=== PATIENT | female | born 1985 | race Caucasian/White ===

== ENCOUNTER 2017-06-22 17:09 | Emergency (ER) | payer MEDICAID, SELFPAY ==
[2017-06-22] MEDS ORDERED: Ondansetron HCl/PF 4 MG/2 ML Vial ONE (17:59)
--- NOTE | 2017-06-22 21:53 | ULT ---
RIGHT UPPER QUADRANT ULTRASOUND: 06/22/17 HISTORY: Right upper quadrant abdominal pain as well as mild right lower quadrant abdominal pain with associa lilian nausea. FINDINGS: The gallbladder wall is at the upper limits of normal in thickness. No gallbladder calculus is seen and there is no pericholecystic fluid. The common duct measures 0.3 cm diameter which is within norm al limits. The liver, pancreas, visualized portions of the IVC, and right kidney demonstrate a normal sonograph ic appearance. The right kidney measures 12.5 cm in length. There has been no interval change compar ed to study on 04/19/14. IMPRESSION: No gallbladder calculi are visualized. POS: [facility]
== END 2017-06-22 19:40 | disposition home or self-care (01) ==
LOC: ERS 17:09
DX: R10.31 Right lower quadrant pain (principal); R10.11 Right upper quadrant pain; F31.9 Bipolar disorder, unspecified; F41.9 Anxiety disorder, unspecified; F17.210 Nicotine dependence, cigarettes, uncomplicated
CPT/HCPCS: 76705; 96361; 96374; 96375; J2270; J2405

== ENCOUNTER 2017-07-05 06:02 | Day surgery (SDC) | payer OTHER ==
[2017-07-04 12:43] VITALS: BMI 21.0
--- NOTE | 2017-07-05 01:49 | HP ---
DATE OF ADMISSION: 07/05/2017 HISTORY OF PRESENT ILLNESS: This is a 31-year-old female with abdominal pain, nausea, and vomiting. The pain was very severe and was over the right upper quadrant epigastric area. She cam e to the ER and had an abdominal CAT scan and abdominal sonogram. Both were reported normal. Her l iver function tests are not elevated. Her serum lipase is normal. The patient complains of abdomin al pain. She came to the ER because of abdominal pain, negative abdominal sonogram, and negative CA T scan. ALLERGIES: None. MEDICAL ILLNESSES: 1. Depression, anxiety. 2. Seizure disorder and was on Dilantin before but stopped taking it more than a year ago. 3. Post-traumatic stress disorder. 4. Sleep disorder. 5. . PHYSICAL EXAMINATION: GENERAL: The patient appears comfortable. VITAL SIGNS: Pulse is 70, blood pressure 110/70. HEENT: Conjunctivae are clear. CARDIOVASCULAR SYSTEM: First and second heart sounds normal. LUNGS: Clear to auscultation. ABDOMEN: Soft to palpate. Abdomen is tender over the epigastric area and also right upper quadrant . There is no rebound or guarding. No organomegaly or masses. EXTREMITIES: Reveal no edema. ADMITTING DIAGNOSES: Abdominal pain and nausea. Her abdominal CAT scan and abdominal sonogram were negative. PLAN: EGD.
[2017-07-05] MEDS ORDERED: Midazolam HCl 2 mg/2 ml Vial ONE (07:26)
[2017-07-05] MEDS ORDERED: LIDOCAINE 2% ONE (07:38)
--- NOTE | 2017-07-05 08:17 | OP ---
DATE OF PROCEDURE: 07/05/2017 SURGEON: Jan Strickland M.D. OPERATIVE PROCEDURE: Esophagogastroduodenoscopy with biopsy. PREOPERATIVE DIAGNOSES: A 31-year-old white female with abdominal pain and nausea. The p atient's pain is over the upper abdomen. The patient had an abdominal CAT scan and abdominal sonogr am. Both came back negative. The patient comes in for esophagogastroduodenoscopy. POSTOPERATIVE DIAGNOSES: 1. Normal esophagus and normal duodenum. 2. Mild mucosal erythema over the gastric antrum. 3. Overall the exam does not explain the patient's abdominal pain. PROCEDURE IN DETAIL: The patient was placed on her left lateral position and was given sedation by Anesthesia Department. A [employer] video gastroscope under direct vision was passed down the oropharyn x, past the gastroesophageal junction, into the stomach. The esophageal mucosa appeared normal. Th e GE junction, no pathology seen. Retroflexion failed to show any lesions in the fundus or cardia. The gastric body, no lesions seen. Over the gastric antrum, there was mild mucosal friability and erythema noted. Biopsies were obtained from the gastric antrum and gastric body. The duodenal bulb and descending duodenum, no pathology seen. The stomach was decompressed and the scope removed. DISCHARGE PLANNING: This is a 31-year-old female with abdominal pain with negative abdomi nal CAT scan, negative sonogram. The patient underwent EGD because of abdominal pain. The EGD show ed no pathology except for mild mucosal hyperemia and friability of the gastric antrum. Biopsies we re obtained from the gastric antrum. DISCHARGE RECOMMENDATIONS: 1. Continue medicine as before. 2. Will await the gastric biopsy and decide further treatment.
== END 2017-07-05 08:35 | disposition home or self-care (01) ==
LOC: SDC 06:02
PROVIDERS: ATTEND Internal Medicine Gastroenterology
PROC: 0DB68ZX Excision of Stomach, Via Natural or Artificial Opening Endoscopic, Diagnostic (ICD-10-PCS; principal; 2017-07-05)
DX: K29.50 Unspecified chronic gastritis without bleeding (principal); F32.9 Major depressive disorder, single episode, unspecified; F41.9 Anxiety disorder, unspecified; F43.10 Post-traumatic stress disorder, unspecified; G40.909 Epilepsy, unspecified, not intractable, without status epilepticus; G47.9 Sleep disorder, unspecified; F17.200 Nicotine dependence, unspecified, uncomplicated; Z91.040 Latex allergy status; Z79.899 Other long term (current) drug therapy; Z98.891 History of uterine scar from previous surgery
CPT/HCPCS: 88305; 88312; J2001; J2250

== ENCOUNTER 2018-10-20 13:12 | Emergency (ER) | payer SELFPAY ==
[2018-10-20 13:38] LABS: #Basophils 0.1 thou/uL (0.0-0.2); #Eosinphils 0.1 thou/uL (0.0-0.7); #Monocytes 0.4 thou/uL (0.11-0.59); #Neutrophils 6.9 thou/uL (1.40-6.50); %Basophils 0.6 % (0.0-1.0); %Lymphocytes 21.5 % (21.0-51.0); %Monocytes 3.8 % (0.0-10.0); %Neutrophils 73.1 % (42.0-75.0); Hemoglobin 15.4 g/dL (12.0-16.0); Mean Corpuscular HGB CONC 33.4 g/dL (32.0-36.0); Mean Corpuscular Hemoglobin 30.4 pg (27.0-31.0); Mean Corpuscular Volume 90.9 fL (78.0-98.0); Mean Platelet Volume 7.4 fL (7.4-10.4); Platelet Count 195 thou/uL (130-400); RBC Distribution Width 11.7 % (11.5-14.5); Red Blood Cell (RBC) Count 5.07 mill/uL (4.20-5.40); White Blood Cell (WBC) Count 9.4 thou/uL (4.8-10.8)
[2018-10-20 14:08] LABS: ALT (SGPT) 15 U/L (8-55); AST (SGOT) 17 U/L (5-34); Albumin 4.6 g/dL (3.5-5.0); Alkaline Phosphatase 75 U/L (40-150); Anion Gap 13 mmol/L (10-20); BUN (Urea Nitrogen) 8 mg/dL (7.0-18.7); Bilirubin, Total 0.8 mg/dL (0.2-1.2); Calc. Creatinine Clearance 0 mL/min (70-130); Calcium 9.9 mg/dL (7.8-10.44); Carbon Dioxide 26 mmol/L (22-29); Chloride 106 mmol/L (98-107); Estimated GFR-MDRD Greater than 90; Globulin 2.7 g/dL (2.4-3.5); Glucose 89 mg/dL (70-105); Lipase 16 U/L (8-78); Protein, Total 7.3 g/dL (6.0-8.3); Sodium 141 mmol/L (136-145)
[2018-10-20 14:51] LABS: Bilirubin Negative (Negative); Blood, Urine Negative (Negative); Clarity CLEAR (Clear); Glucose, Urine (Dipstick) Negative (Negative); Leukocyte Negative (Negative); Nitrite Negative (Negative); Protein, Urine (Dipstick) Negative (Neg-Trace); Specific Gravity, Urine 1.022 (1.002-1.036); Urobilinogen 0.2 mg/dL (0.2-1.0); pH, Urine 6.5 (5.0-9.0)
== END 2018-10-20 15:13 | disposition left against medical advice (07) ==
LOC: ERS 13:12
DX: Z53.21 Procedure and treatment not carried out due to patient leaving prior to being seen by health care provider (principal)
CPT/HCPCS: 36415; 80053; 81003; 83690; 85025

== ENCOUNTER 2021-07-11 11:34 | Inpatient (IN) | payer SELFPAY ==
[2021-07-11] MEDS ORDERED: FLU VACC QS2021-22(6MOS UP)/PF 60 MCG/0.5 ML SYRINGE IM ONE (14:15)
[2021-07-11] MEDS ORDERED: Vancomycin 1 GM in Premix Bag 1 BAG IVPB SCH (14:45)
[2021-07-11] MEDS ORDERED: Acetaminophen 325 MG TAB PO PRN (15:06)
[2021-07-11] MEDS ORDERED: Lorazepam 1 MG TAB PO SCH (15:08)
[2021-07-11] MEDS ORDERED: DEXTROSE 5% IVPB SCH (16:00)
[2021-07-11] MEDS ORDERED: WATER IVPB SCH (16:00)
[2021-07-11] MEDS ORDERED: VANCOMYCIN HCL IVPB SCH (16:00)
[2021-07-11] MEDS ORDERED: Ondansetron PF 4 MG/2 ML Vial IVP PRN (16:14)
[2021-07-11] MEDS ORDERED: Ondansetron ODT 4 MG TAB PO PRN (16:14)
[2021-07-11 16:40] LABS: Syphilis Antibody Nonreactive (Nonreactive); Syphilis Antibody Index 0.03 S/CO (<1.00 Non-Reactive)
[2021-07-11 16:41] LABS: HIV (1/2) Antibody/Antigen Non-Reactive (NonReactive); HIV 1/2 INDEX 0.11 S/CO (<1.00)
[2021-07-11] MEDS ORDERED: AMPicillin 1 GM in Sodium Chloride 0.9% 100 ML IVPB SCH (17:00)
[2021-07-11] MEDS ORDERED: hydrOXYzine 25 MG TAB PO SCH (21:00)
[2021-07-11] MEDS ORDERED: Nicotine 21 MG PATCH TD SCH (21:15)
[2021-07-11] MEDS ORDERED: Vancomycin HCl 750 MG in Sodium Chloride 0.9% 250 ML 250 ML IVPB SCH (23:59)
[2021-07-12] MEDS: cefTRIAXone\\ROCEPHIN 1 GM in Sodium Chloride 0.9% 100 ML IVPB SCH ×2 (00:41→11:20)
[2021-07-12 04:30] VITALS: BMI 18.5
[2021-07-12 05:19] LABS: #Eosinphils 0.1 thou/uL (0.0-0.7); #Monocytes 0.7 thou/uL (0.11-0.59); %Basophils 0.6 % (0.0-1.0); %Eosinophils 0.7 % (0.0-10.0); %Lymphocytes 25.8 % (21.0-51.0); %Monocytes 8.6 % (0.0-10.0); %Neutrophils 64.3 % (42.0-75.0); Hemoglobin 14.3 g/dL (12.0-16.0); Mean Corpuscular HGB CONC 32.7 g/dL (32.0-36.0); Mean Corpuscular Hemoglobin 30.4 pg (27.0-31.0); Mean Corpuscular Volume 92.9 fL (78.0-98.0); Mean Platelet Volume 7.6 fL (7.4-10.4); Platelet Count 166 thou/uL (130-400); RBC Distribution Width 11.3 % (11.5-14.5); Red Blood Cell (RBC) Count 4.71 mill/uL (4.20-5.40); White Blood Cell (WBC) Count 7.8 thou/uL (4.8-10.8)
[2021-07-12 05:36] LABS: Anion Gap 15 mmol/L (10-20); BUN (Urea Nitrogen) 7 mg/dL (7.0-18.7); Calc. Creatinine Clearance 97 mL/min (70-130); Calcium 9.8 mg/dL (7.8-10.44); Carbon Dioxide 22 mmol/L (22-29); Chloride 109 mmol/L (98-107); Glucose 111 mg/dL (70-105); Potassium 3.7 mmol/L (3.5-5.1); Sodium 142 mmol/L (136-145)
[2021-07-12 16:04] VITALS: BP 123/81; TEMP 98.5
[2021-07-12] MEDS ORDERED: Nicotine 21 MG PATCH TD SCH (21:00)
[2021-07-14 12:39] LABS: HIV-1 Quantitative, RNA PCR <20 copies/mL (.)
[2021-07-15 18:23] LABS: Chlam.trachomatis by PCR,Urine Inconclusive (NotDetected)
[2021-07-16 07:16] LABS: HSV 1 - DNA Negative (Negative); HSV 2 - DNA Negative (Negative)
[2021-07-16 08:13] LABS: Reference Lab Name LABCORP
[2021-07-16 08:14] LABS: Ref Lab Test Ordered HSV PCR CSF
== END 2021-07-12 17:34 | disposition home or self-care (01) | DRG 864 ==
LOC: 3SE 13:40
PROVIDERS: ADMIT Internal Medicine; ATTEND Internal Medicine
DX: R50.9 Fever, unspecified (principal); R45.851 Suicidal ideations; F41.9 Anxiety disorder, unspecified; F17.210 Nicotine dependence, cigarettes, uncomplicated; Z20.822 Contact with and (suspected) exposure to COVID-19; D35.2 Benign neoplasm of pituitary gland; F31.9 Bipolar disorder, unspecified; Z91.040 Latex allergy status; Z91.048 Other nonmedicinal substance allergy status; Z79.899 Other long term (current) drug therapy
CPT/HCPCS: 36415; 80048; 85025; 86592; 86698; 86780; 86788; 86789; 87389; 87491; 87529; 87536; 87591; 87899; 90471; 90686; 90732; G0008; G0009; J0696; J3370; J3490; J7070